=== PATIENT | male | born 1960 | race Caucasian/White ===

== ENCOUNTER 2017-05-09 07:55 | Observation (INO) | payer BC ==
--- NOTE | 2017-05-09 07:59 | PDOC ---
History of Present Illness - General Chief Complaint: Pain, Acute Stated Complaint: LLQ PAIN Time Seen by Provider: 05/09/17 07:59 - History of Present Illness Initial Comments: 05/09/17 08:09 56-year-old male with a history of chronic back pain, innumerable episodes of renal colic presents w left lower quadrant pain for 3 days. The patient reports that the pain is mostly in the left lower quadrant but radiates towards the suprapubic area. He reports that this pain feels somewhat like a kidney stone however typically has pain that begins in his flank which he did not have this time. Pain is associated with nausea and dry heaving but no vomiting. + chills as well, no fevers. He had a normal bowel movement this morning. He tried Percocet for pain 2 days ago with minimal relief. He also took a Flomax last night to assist with passing the stone but he has not passed any stones. He does report that at times the stones are not visible because they are too small. Denies urinary symptoms or hematuria. Denies headache, weakness, CP, SOB. Reports he has not been eating and drinking and feels dehydrated. Past History - Past Medical History Allergies/Adverse Reactions: Allergies Allergy/AdvReac Type Severity Reaction Status Date / Time moxifloxacin HCl Allergy Verified 05/09/17 07:56 [From Avelox] IVP DYE Allergy Uncoded 05/09/17 07:57 Home Medications: Ambulatory Orders Allopurinol 100 mg PO DAILY 05/09/17 Losartan Potassium 100 mg PO DAILY 05/09/17 Review of Systems - Review of Systems Comments:: 05/09/17 08:42 GENERAL/CONSTITUTIONAL: No fever No weakness +chills HEAD, EYES, EARS, NOSE AND THROAT: No change in vision. No ear pain or discharge. No sore throat. GASTROINTESTINAL: +nausea, +abd pain. No vomiting, diarrhea or constipation. GENITOURINARY: No dysuria, frequency, or change in urination. CARDIOVASCULAR: No chest pain or shortness of breath. RESPIRATORY: No cough, wheezing, or hemoptysis. MUSCULOSKELETAL: No joint or muscle swelling or pain. No neck or back pain. SKIN: No rash NEUROLOGIC: No headache, vertigo, loss of consciousness, or change in strength/ sensation. ENDOCRINE: No increased thirst. No abnormal weight change. HEMATOLOGIC/LYMPHATIC: No anemia, easy bleeding, or history of blood clots. ALLERGIC/IMMUNOLOGIC: No hives or skin allergy. *Physical Exam - Physical Exam Comments: 05/09/17 08:43 GENERAL: Awake, alert, and fully oriented, appears uncomfortable in stretcher HEAD: No signs of trauma EYES: PERRLA, EOMI, sclera anicteric, conjunctiva clear ENT: Auricles normal inspection, hearing grossly normal, nares patent, oropharynx clear without exudates. Moist mucosa NECK: Normal ROM, supple, no lymphadenopathy, JVD, or masses LUNGS: Breath sounds equal, clear to auscultation bilaterally. No wheezes, and no crackles HEART: tachy to 115 but regular, normal S1 and S2, no murmurs, rubs or gallops ABDOMEN: Soft, +LLQ ttp, normoactive bowel sounds. No guarding, no rebound. No masses. No CVAT EXTREMITIES: Normal range of motion, no edema. No clubbing or cyanosis. No cords, erythema, or tenderness NEUROLOGICAL: Normal speech, cranial nerves intact, negative pronator drift, 5/ 5 strength in all 4 extremities, normal sensation to light touch in all 4 extremities, normal cerebellar exam, normal gait, normal reflexes and tone SKIN: Warm, Dry, normal turgor, no rashes or lesions noted. ED Treatment Course - LABORATORY CBC & Chemistry Diagram: 05/09/17 08:10 05/09/17 08:10 Medical Decision Making - Medical Decision Making 05/09/17 08:44 56-year-old male with a history of back pain and renal colic presents with left lower quadrant pain. Vitals remarkable for tachycardia to 118, likely due to dehydration and poor by mouth intake. Exam with left lower quadrant tenderness to deep palpation. Differential includes but is not limited to renal colic versus acute diverticulitis. Will obtain imaging for evaluation, check a UA and labs. Will also give pain control and fluid resuscitation. 05/09/17 10:09 CT on my read with large stone. Pain is well controlled. Awaiting radiology read. 05/09/17 11:06 CT scan with 5 x 7 mm calculus in the distal upper ureter w mild-mod hydro. Pt required another dose of morphine for pain control. Discussed case with Dr. Reeves. Pt to be admitted for lithotripsy. Will also treat with 1G ceftriaxone given leukocytosis and also flomax. Hospitalist has been microblogged, awaiting call back for admission. 05/09/17 12:39 Case discussed in detail with admitting physician including history, physical exam and ancillary studies. Admitting physician has assumed care for the patient, will follow all pending diagnostics and will complete the evaluation and treatment. *DC/Admit/Observation/Transfer Diagnosis at time of Disposition: Renal colic on left side, LINO (acute kidney injury) - Discharge Dispostion Condition at time of disposition: Stable Admit: Yes - Referrals - Patient Instructions - Post Discharge Activity - Attestations Physician Attestion: 05/09/17 11:42 I, Dr. Kirk Lorenzo MD, attest that this document has been prepared under my direction and personally reviewed by me in its entirety. I further attest, that it accurately reflects all work, treatment, procedures and medical decision -making performed by me.
[2017-05-09] MEDS ORDERED: morphine CARPU-JECT 4 MG/1 ML DISP.SYRIN IVPUSH ONE ×2 (08:08→10:16)
[2017-05-09] MEDS ORDERED: SODIUM CHLORIDE 0.9% 500 ML INFUS.BAG IV ONE (08:08)
[2017-05-09 08:13] VITALS: BMI 37.5
[2017-05-09] MEDS ORDERED: morphine SULFATE 4 MG/ML VIAL ONE ×2 (08:14→16:55)
[2017-05-09 08:16] LABS: URINE APPEARANCE CLEAR; URINE BILIRUBIN NEGATIVE (NEGATIVE); URINE COLOR YELLOW; URINE GLUCOSE (UA) NEGATIVE (NEGATIVE); URINE KETONE 1+ (NEGATIVE)
[2017-05-09 08:17] LABS: PH,URINE 6.5 (4.5-8); URINE BLOOD 1+ (NEGATIVE); URINE LEUK ESTERASE NEGATIVE (NEGATIVE); URINE NITRITE NEGATIVE (NEGATIVE); URINE PROTEIN TRACE (NEGATIVE); URINE UROBILINOGEN 0.2 (0.2-1.0)
[2017-05-09 08:17] LABS: BASOPHIL 2.5 % (0-2.0); EOSINOPHIL 0.2 % (0-4.5); MCH 31.4 pg (25.7-33.7); MEAN CELL VOLUME 92.1 fl (80-96); MEAN PLT VOLUME 7.3 fl (7.5-11.1); NEUTROPHILS 78.6 % (42.8-82.8); PLATELET COUNT 421 K/MM3 (134-434); RDW 13.2 % (11.9-15.9); WHITE BLOOD COUNT 13.8 K/mm3 (4.0-10.8)
[2017-05-09] MEDS ORDERED: ONDANSETRON 4 MG/2 ML VIAL ONE (08:21)
[2017-05-09] MEDS ORDERED: ONDANSETRON 4 MG/2 ML VIAL IVPUSH ONE (08:24)
[2017-05-09 08:40] LABS: URINE WBC 0-2 (0-2)
[2017-05-09 08:41] LABS: URINE BACTERIA MODERATE /hpf (NEGATIVE)
[2017-05-09 08:41] LABS: ALBUMIN 3.9 g/dl (3.5-5.0); ALK PHOS 79 U/L (32-92); ANION GAP 10 (8-16); BILIRUBIN,TOTAL 1.1 mg/dl (0.2-1.0); CALCIUM 8.8 mg/dl (8.4-10.2); CO2 26 mmol/L (22-28); CREATININE 1.6 mg/dl (0.6-1.3); GLUCOSE,RANDOM 122 mg/dl (74-106); SGOT/AST 20 U/L (10-42); SGPT/ALT 18 U/L (10-40); TOT PROT 7.4 g/dl (6.4-8.3)
[2017-05-09] MEDS ORDERED: morphine CARPU-JECT 2 MG/1 ML DISP.SYRIN ONE (10:17)
[2017-05-09] MEDS ORDERED: CEFTRIAXONE 1 GM in DEXTROSE 5%-WATER - 50 ML IVPB ONE (11:02)
[2017-05-09] MEDS ORDERED: TAMSULOSIN HCL 0.4 MG CAP.ER.24H (FP) PO ONE (11:02)
[2017-05-09] MEDS ORDERED: cefTRIAXone SODIUM 1 GM VIAL ONE (11:11)
[2017-05-09] MEDS ORDERED: TAMSULOSIN HCL 0.4 MG CAP.ER.24H (FP) ONE (11:11)
[2017-05-09] MEDS ORDERED: SODIUM CHLORIDE 1,000 ML IV SCH ×2 (15:45→21:33)
[2017-05-09] MEDS: LOSARTAN POTASSIUM 50 MG TABLET (FP) PO SCH (16:13)
--- NOTE | 2017-05-09 17:49 | CON.GU ---
Consult Consult Specialty:: Referred by:: Medicine Reason for Consultation:: left ureteral calculus - History of Present Illness Chief Complaint: renal colic History of Present Illness: 56 year old male with history of recurrent nephrolithiasis who presents with two days of left sided flank and lower abdominal pain and nausea. No fevers. CT reveals a 7x5mm left UVJ stone with proximal hydronephrosis. - History Source History Provided By: Patient Limitations to Obtaining History: No Limitations - Past Medical History Renal/: Yes: Renal Calculi - Alcohol/Substance Use Hx Alcohol Use: No - Smoking History Smoking history: Never smoked Have you smoked in the past 12 months: No Home Medications - Allergies Allergies/Adverse Reactions: Allergies Allergy/AdvReac Type Severity Reaction Status Date / Time moxifloxacin HCl Allergy Verified 05/09/17 07:56 [From Avelox] IVP DYE Allergy Uncoded 05/09/17 07:57 - Home Medications Home Medications: Ambulatory Orders Allopurinol 100 mg PO DAILY 05/09/17 Losartan Potassium 100 mg PO DAILY 05/09/17 Review of Systems - Review of Systems Constitutional: denies: Fever Gastrointestinal: reports: Nausea Genitourinary: reports: Flank Pain, Frequency. denies: Burning, Hematuria, Incontinence, Testicular Pain Physical Exam- Vital Signs: Vital Signs Temperature 97.8 F 05/09/17 15:38 Pulse Rate 124 H 05/09/17 15:38 Respiratory Rate 18 05/09/17 15:38 Blood Pressure 139/89 05/09/17 15:38 O2 Sat by Pulse Oximetry (%) 95 05/09/17 15:04 Constitutional: Yes: Well Nourished, No Distress, Calm Respiratory: Yes: WNL, Regular Gastrointestinal: Yes: Soft, Abdomen, Obese Renal/: No: Bladder Distention, CVA Tenderness - Left, CVA Tenderness - Right , [place] Present Labs: CBC, BMP 05/09/17 08:10 05/09/17 08:10 Imaging - Results Cat Scan: Report Reviewed, Image Reviewed Problem List - Problems (1) Calculus of left ureter Assessment/Plan: stone at UVJ. no signs of infection or sepsis. medical expulsive therapy overnight. Discussed option ureteroscopic laser litho, but the patient does not want invasive managment if possible and would prefer ESWL Code(s): N20.1 - CALCULUS OF URETER (2) Hydronephrosis Code(s): N13.30 - UNSPECIFIED HYDRONEPHROSIS
--- NOTE | 2017-05-09 21:25 | HP ---
Admitting History and Physical - Primary Care Physician PCP: oTr Patel - Admission Chief Complaint: left lower quadrant pain History of Present Illness: This is a 56 year old male with hx of HTN and renal calculi. He presented to the ED today with worsening left sided groin pain. Pain started on Monday and he assumed it would pass as he had similar events in the past however the pain moved from his groin to his supra pubic region and back again to groin radiating down his pelvis. He did feel nauseated and has not had an appetite. Currently, his pain is stable and nausea is eating a small meal. Denies chest pain, fever, chills, change in bowel or urinary habits, sob, activity level. 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 [employer] History of Recent Travel: No Home Medications - Allergies Allergies/Adverse Reactions: Allergies Allergy/AdvReac Type Severity Reaction Status Date / Time moxifloxacin HCl Allergy Verified 05/09/17 07:56 [From Avelox] IVP DYE Allergy Uncoded 05/09/17 07:57 - Home Medications Home Medications: Ambulatory Orders Allopurinol 100 mg PO DAILY 05/09/17 Losartan Potassium 100 mg PO DAILY 05/09/17 Review of Systems - Review of Systems Constitutional: reports: Loss of Appetite Eyes: reports: No Symptoms HENT: reports: No Symptoms Neck: reports: No Symptoms Cardiovascular: reports: No Symptoms Respiratory: reports: No Symptoms Gastrointestinal: reports: No Symptoms Genitourinary: reports: Other (left groin pain) Musculoskeletal: reports: No Symptoms Integumentary: reports: No Symptoms Neurological: reports: No Symptoms Endocrine: reports: No Symptoms Hematology/Lymphatic: reports: No Symptoms Psychiatric: reports: No Symptoms Physical Examination Vital Signs: Vital Signs Temperature 97.8 F 05/09/17 15:38 Pulse Rate 124 H 05/09/17 15:38 Respiratory Rate 18 05/09/17 20:49 Blood Pressure 139/89 05/09/17 15:38 O2 Sat by Pulse Oximetry (%) 95 05/09/17 15:04 Constitutional: Yes: No Distress Eyes: Yes: Conjunctiva Clear HENT: Yes: Atraumatic Neck: Yes: Supple Cardiovascular: Yes: Regular Rate and Rhythm, S1, S2 Respiratory: Yes: Regular, CTA Bilaterally Gastrointestinal: Yes: Normal Bowel Sounds, Other (LLQ tenderness referring down pelvic region) ...Rectal Exam: Yes: WNL Renal/: Yes: Other (mild supra pubic tenderness refers to L groin) Extremities: Yes: WNL Edema: No Integumentary: Yes: WNL Neurological: Yes: Alert, Oriented, Cran Nerves II-XII Intact ...Motor Strength: WNL Psychiatric: Yes: Alert, Oriented Labs: CBC, BMP 05/09/17 08:10 05/09/17 08:10 Imaging - Results Chest X-ray: Report Reviewed, Image Reviewed (bibasilar atelectatic changes) Cat Scan: Report Reviewed (7x5mm left renal calculi w hydro) Problem List - Problems (1) LINO (acute kidney injury) Code(s): N17.9 - ACUTE KIDNEY FAILURE, UNSPECIFIED (2) Calculus of left ureter Code(s): N20.1 - CALCULUS OF URETER (3) Hydronephrosis Code(s): N13.30 - UNSPECIFIED HYDRONEPHROSIS (4) Renal colic on left side Code(s): N23 - UNSPECIFIED RENAL COLIC Assessment/Plan Assessment: 56 year old male with HTN admitted with worsening left renal colic pain Plan 1. L sided renal calucli with hydro - Start IVF @1000cc/hr - Monitor pain improvement - x1 dose ceftriaxone, UA negative for UTI - Flomax daily - Possible lithotripsy in AM at [facility] if symptoms do not improve - NPO after midnight - D/w urology 2. HTN - Losartan 100mg daily 3. LINO - Likely post obstructive - Will monitor - Fluids as above 4. Leukocytosis - Likely reactive, no fevers, chills - Trend 5. DVT - SCDS, hold systemic AC for possible OR in AM Visit type - Emergency Visit Emergency Visit: Yes ED Registration Date: 05/09/17 Care time: The patient presented to the Emergency Department on the above date and was hospitalized for further evaluation of their emergent condition. - New Patient This patient is new to me today: Yes Date on this admission: 05/09/17 - Critical Care Critical Care patient: No
[2017-05-10] MEDS: morphine SULFATE 4 MG/ML VIAL IVPB PRN ×2 (01:40→07:31)
[2017-05-10 08:17] LABS: MCH 30.7 pg (25.7-33.7); MCHC 33.2 g/dl (32.0-35.9); MEAN CELL VOLUME 92.6 fl (80-96); MEAN PLT VOLUME 7.5 fl (7.5-11.1); PLATELET COUNT 367 K/MM3 (134-434); RDW 13.3 % (11.9-15.9); WHITE BLOOD COUNT 11.6 K/mm3 (4.0-10.8)
--- NOTE | 2017-05-10 08:20 | PN ---
Physical Exam: SUBJECTIVE: Patient seen and examined OBJECTIVE: Vital Signs Period Temp Pulse Resp BP Sys/Valle Pulse Ox Last 24 Hr 97.8 F-98.7 F 95-124 16-20 92-159/53-97 94-97 GENERAL: The patient is awake, alert, and fully oriented, in no acute distress. HEAD: Normal with no signs of trauma. EYES: PERRL, extraocular movements intact, sclera anicteric, conjunctiva clear. No ptosis. ENT: Ears normal, nares patent, oropharynx clear without exudates, moist mucous membranes. NECK: Trachea midline, full range of motion, supple. LUNGS: Breath sounds equal, clear to auscultation bilaterally, no wheezes, no crackles, no accessory muscle use. HEART: Regular rate and rhythm, S1, S2 without murmur, rub or gallop. ABDOMEN: Soft, nontender, nondistended, normoactive bowel sounds, no guarding, no rebound, no hepatosplenomegaly, no masses. EXTREMITIES: 2+ pulses, warm, well-perfused, no edema. NEUROLOGICAL: Cranial nerves II through XII grossly intact. Normal speech, gait not observed. PSYCH: Normal mood, normal affect. SKIN: Warm, dry, normal turgor, no rashes or lesions noted Laboratory Results - last 24 hr 05/09/17 05/09/17 05/09/17 08:08 08:10 08:10 WBC 13.8 H RBC 4.95 Hgb 15.5 Hct 45.6 MCV 92.1 MCH 31.4 MCHC 34.0 RDW 13.2 Plt Count 421 MPV 7.3 L Neutrophils % 78.6 Lymphocytes % 9.5 Monocytes % 9.2 Eosinophils % 0.2 Basophils % 2.5 H Sodium 134 L Potassium 3.7 Chloride 98 Carbon Dioxide 26 Anion Gap 10 BUN 16 Creatinine 1.6 H Creat Clearance w eGFR 44.78 Random Glucose 122 H Calcium 8.8 Total Bilirubin 1.1 H AST 20 ALT 18 Alkaline Phosphatase 79 Total Protein 7.4 Albumin 3.9 Urine Color Yellow Urine Appearance Clear Urine pH 6.5 Ur Specific [place] 1.020 Urine Protein Trace H Urine Glucose (UA) Negative Urine Ketones 1+ H Urine Blood 1+ H Urine Nitrite Negative Urine Bilirubin Negative Urine Urobilinogen 0.2 Ur Leukocyte Esterase Negative Urine RBC 3-5 Urine WBC 0-2 Ur Epithelial Cells Few Urine Bacteria Moderate 05/10/17 07:30 WBC 11.6 H RBC 4.49 Hgb 13.8 D Hct 41.5 MCV 92.6 MCH 30.7 MCHC 33.2 RDW 13.3 Plt Count 367 MPV 7.5 Neutrophils % Lymphocytes % Monocytes % Eosinophils % Basophils % Sodium Potassium Chloride Carbon Dioxide Anion Gap BUN Creatinine Creat Clearance w eGFR Random Glucose Calcium Total Bilirubin AST ALT Alkaline Phosphatase Total Protein Albumin Urine Color Urine Appearance Urine pH Ur Specific [place] Urine Protein Urine Glucose (UA) Urine Ketones Urine Blood Urine Nitrite Urine Bilirubin Urine Urobilinogen Ur Leukocyte Esterase Urine RBC Urine WBC Ur Epithelial Cells Urine Bacteria Active Medications Generic Name Dose Route Start Last Admin Trade Name Freq PRN Reason Stop Dose Admin Sodium Chloride 1,000 mls @ 83 mls/hr 05/09/17 21:33 05/10/17 01:41 Normal Saline - IV 83 mls/hr ASDIR UMER Administration Losartan Potassium 100 mg 05/09/17 16:00 05/09/17 16:13 Cozaar - PO 100 mg DAILY UMER Administration Morphine Sulfate 4 mg 05/09/17 16:55 05/10/17 07:31 Morphine Sulfate IVPB 4 mg Q6H PRN Administration PAIN Tamsulosin HCl 0.4 mg 05/10/17 08:30 Flomax - PO DAILY@0830 [facility] ASSESSMENT/PLAN:
[2017-05-10] MEDS ORDERED: TAMSULOSIN HCL 0.4 MG CAP.ER.24H (FP) PO SCH (08:30)
[2017-05-10 08:32] LABS: ANION GAP 7 (8-16); CALCIUM 8.2 mg/dl (8.4-10.2); CO2 25 mmol/L (22-28); CREATININE 1.5 mg/dl (0.6-1.3); GLUCOSE,RANDOM 116 mg/dl (74-106); MAGNESIUM 1.7 mg/dL (1.8-2.4)
[2017-05-10] MEDS ORDERED: MAGNESIUM SULFATE 2 GM in SODIUM CHLORIDE 100 ML IVPB ONE (09:08)
--- NOTE | 2017-05-10 09:32 | EKG ---
Test Reason : Blood Pressure : / mmHG Vent. Rate : 093 BPM Atrial Rate : 093 BPM P-R Int : 136 ms QRS Dur : 086 ms QT Int : 354 ms P-R-T Axes : 062 047 032 degrees QTc Int : 440 ms NORMAL SINUS RHYTHM NORMAL ECG NO PREVIOUS ECGS AVAILABLE Confirmed by NICCI PEDRO MD ([id number] on 05/10/2017 9:32:20 AM Referred By: MAXIMINO SANTANA Confirmed By:NICCI PEDRO MD
[2017-05-10] MEDS ORDERED: ALLOPURINOL 100 MG TABLET (FP) PO SCH (10:00)
[2017-05-10] MEDS ORDERED: CEFTRIAXONE 1 GM/50 ML PREMIX IVPB SCH (10:00)
[2017-05-10] MEDS ORDERED: ALLOPURINOL 100 MG PO SCH (10:00)
[2017-05-10] MEDS ORDERED: cefTRIAXone 1 GM/50 ML BAG (PRE-DOCKED) IVPB SCH (10:00)
[2017-05-10] MEDS ORDERED: MAGNESIUM SULF 50% (8.12 MEQ/2 ML-1 GM VIAL) IVPB ONE (10:00)
[2017-05-10] MEDS: LOSARTAN POTASSIUM 50 MG TABLET (FP) PO SCH (10:30)
--- NOTE | 2017-05-10 14:04 | DS ---
Physical Exam: SUBJECTIVE: Patient seen and examined OBJECTIVE: Vital Signs Period Temp Pulse Resp BP Sys/Valle Pulse Ox Last 24 Hr 97.8 F-98.7 F 95-124 17-20 92-153/53-89 94-97 PHYSICAL EXAM GENERAL: The patient is awake, alert, and fully oriented, in no acute distress. HEAD: Normal with no signs of trauma. EYES: PERRL, extraocular movements intact, sclera anicteric, conjunctiva clear. ENT: Ears normal, nares patent, oropharynx clear without exudates, moist mucous membranes. NECK: Trachea midline, full range of motion, supple. LUNGS: Breath sounds equal, clear to auscultation bilaterally, no wheezes, no crackles, no accessory muscle use. HEART: Regular rate and rhythm, S1, S2 without murmur, rub or gallop. ABDOMEN: Soft, nontender, nondistended, normoactive bowel sounds, no guarding, no rebound, no hepatosplenomegaly, no masses. EXTREMITIES: 2+ pulses, warm, well-perfused, no edema. NEUROLOGICAL: Cranial nerves II through XII grossly intact. Normal speech, gait not observed. PSYCH: Normal mood, normal affect. SKIN: Warm, dry, normal turgor, no rashes or lesions noted. LABS Laboratory Results - last 24 hr 05/10/17 05/10/17 07:30 07:30 WBC 11.6 H RBC 4.49 Hgb 13.8 D Hct 41.5 MCV 92.6 MCH 30.7 MCHC 33.2 RDW 13.3 Plt Count 367 MPV 7.5 Sodium 132 L Potassium 4.1 Chloride 100 Carbon Dioxide 25 Anion Gap 7 L BUN 14 Creatinine 1.5 H Random Glucose 116 H Calcium 8.2 L Magnesium 1.7 L HOSPITAL COURSE: Date of Admission:05/09/17 Date of Discharge: 05/10/17 Minutes to complete discharge: 45 Discharge Summary Reason For Visit: RENAL COLIC ON LEFT SIDE ACUTE KIDNEY INJURY Current Active Problems LINO (acute kidney injury) (Acute) Calculus of left ureter (Acute) Hydronephrosis (Acute) Renal colic on left side (Acute) Condition: Stable - Instructions - Home Medications Comprehensive Discharge Medication List: Ambulatory Orders Ca Cmb No.1/Vit D3/B-6/FA/B12 [Vitamin D3 1,000 Unit Tablet] 1 each PO DAILY tablet 06/05/12 Oxycodone HCl/Acetaminophen [Percocet 5/325 -] 1 tab PO Q4H PRN #15 tablet 07/17 Simvastatin mg PO HS 07/17/15 Carisoprodol 350 mg PO DAILY PRN tablet 06/07/16 Allopurinol 100 mg PO DAILY 05/09/17 Losartan Potassium 100 mg PO DAILY 05/09/17
[2017-05-10 14:25] VITALS: BP 113/59; PULSE 100; TEMP 98
== END 2017-05-10 15:08 | disposition home or self-care (01) ==
LOC: FER 07:55 → MERGE 13:50 → FM/S 13:50
PROVIDERS: ADMIT Internal Medicine; ATTEND Nurse Practitioner Family
PROC: 3E03329 Introduction of Other Anti-infective into Peripheral Vein, Percutaneous Approach (ICD-10-PCS; principal; 2017-05-09)
PROC: 3E033NZ Introduction of Analgesics, Hypnotics, Sedatives into Peripheral Vein, Percutaneous Approach (ICD-10-PCS; 2017-05-09)
PROC: 3E033GC Introduction of Other Therapeutic Substance into Peripheral Vein, Percutaneous Approach (ICD-10-PCS; 2017-05-09)
DX: N13.2 Hydronephrosis with renal and ureteral calculous obstruction (principal); Z87.442 Personal history of urinary calculi; N17.9 Acute kidney failure, unspecified; I10 Essential (primary) hypertension; Z86.718 Personal history of other venous thrombosis and embolism
CPT/HCPCS: 36415; 71010-TC; 74176-TC; 76775-TC; 76856-TC; 80048; 80053; 81003; 81015; 83735; 85025; 85027; 87086; 93005; 99284-25; G0378

== ENCOUNTER 2017-05-16 06:41 | Day surgery (SDC) | payer BC ==
[2017-05-16] MEDS ORDERED: oxyCODONE HCL 5 MG TABLET PO PRN (08:17)
[2017-05-16] MEDS ORDERED: ONDANSETRON 4 MG/2 ML VIAL IVPUSH PRN (08:17)
[2017-05-16] MEDS ORDERED: PROPOFOL 20 ML ONE (08:26)
[2017-05-16] MEDS ORDERED: MIDAZOLAM HCL 2 MG/2 ML SINGLE DOSE VIAL ONE ×2 (08:26)
[2017-05-16] MEDS ORDERED: LIDOCAINE HCL/PF 2% SDV 5ML VIAL ONE (08:26)
[2017-05-16] MEDS ORDERED: LACTATED RINGERS SOLUTION 1,000 ML IV SCH (08:30)
--- NOTE | 2017-05-16 08:31 | HP ---
History & Physical Update - History History: No Change - Physical Physical: No Change - Assessment Assessment: No Change - Plan Plan: No Change
[2017-05-16] MEDS ORDERED: GENTAMICIN SO4 80 MG/2 ML VIAL ONE (08:32)
[2017-05-16] MEDS ORDERED: GENTAMICIN SO4 80 MG/2 ML VIAL IVPB ONE (08:35)
[2017-05-16] MEDS ORDERED: ACETAMINOPHEN 1000 MG/100 ML VIAL (NON FORMULARY) IVPB ONE (08:59)
[2017-05-16] MEDS ORDERED: IBUPROFEN 800 MG/8 ML IJ IVPB PRN (08:59)
[2017-05-16] MEDS ORDERED: DEXTROSE 5%-0.45% SALINE 1,000 ML IV SCH (09:00)
[2017-05-16] MEDS ORDERED: KETOROLAC TROMETHAMINE 30 MG/1 ML VIAL ONE (09:12)
[2017-05-16] MEDS ORDERED: ACETAMINOPHEN INJECTION 100 ML IVPB ONE (09:44)
[2017-05-16 16:16] VITALS: BP 106/70; PULSE 68; TEMP 98
--- NOTE | 2017-05-17 09:32 | OP ---
DATE OF OPERATION: 05/16/2017 PREOPERATIVE DIAGNOSIS: Left ureteral calculus. POSTOPERATIVE DIAGNOSIS: Left ureteral calculus. PROCEDURE: Left extracorporeal shock wave lithotripsy. ANESTHESIA: General, Citlali Trujillo MD. FINDINGS: Stone in the junction of the upper and mid-ureter on the left side. ESTIMATED BLOOD LOSS: None. PREOPERATIVE INDICATIONS: The patient is a 56-year-old male with recurrent kidney stone disease. He has a 7 x 5 mm stone lodged in the ureter at the junction of the upper and mid-ureter. He comes to the OR for ESWL. DESCRIPTION OF OPERATION: The patient was brought to the OR, placed on the table in the supine position. Stone was located on fluoroscopy and correlated with the CAT scan report a few days earlier. Next, 2500 shocks were applied to the area of the stone. Patient was given IV antibiotic as well. He tolerated the procedure well, was woken up. Anna [id number]
== END 2017-05-16 12:00 | disposition home or self-care (01) ==
LOC: JASU-SURG 06:41
PROVIDERS: ATTEND Urology
PROC: 0TF7XZZ Fragmentation in Left Ureter, External Approach (ICD-10-PCS; principal; 2017-05-16 08:15)
DX: N20.1 Calculus of ureter (principal); I10 Essential (primary) hypertension; E78.5 Hyperlipidemia, unspecified; E66.9 Obesity, unspecified; Z68.37 Body mass index [BMI] 37.0-37.9, adult
CPT/HCPCS: 94760

== ENCOUNTER 2017-06-23 10:27 | Emergency (ER) | payer BC ==
[2017-06-23] MEDS ORDERED: HYDROmorphone HCL CARPU-JECT 1 MG/1 ML DISP.SYRIN IVPUSH ONE ×2 (10:40→11:45)
[2017-06-23] MEDS ORDERED: ONDANSETRON 4 MG/2 ML VIAL IVPUSH ONE (10:40)
[2017-06-23] MEDS ORDERED: SODIUM CHLORIDE 1,000 ML IV STA (10:40)
[2017-06-23] MEDS ORDERED: ONDANSETRON 4 MG/2 ML VIAL ONE (10:45)
[2017-06-23] MEDS ORDERED: HYDROmorphone HCL CARPU-JECT 1 MG/1 ML DISP.SYRIN ONE ×2 (10:45→11:42)
[2017-06-23 11:16] LABS: BASO % 0.9 % (0-2.0); EOS % 1.3 % (0-4.5); HEMATOCRIT 45.9 % (35.4-49); HEMOGLOBIN 15.3 GM/dl (11.7-16.9); LYMPH % 20.9 % (8-40); MCH 31.6 pg (25.7-33.7); MCHC 33.3 g/dl (32.0-35.9); MEAN CELL VOLUME 94.9 fl (80-96); MEAN PLT VOLUME 7.5 fl (7.5-11.1); MONO % 7.7 % (3.8-10.2); NEUT % 69.2 % (42.8-82.8); PLATELET COUNT 433 K/MM3 (134-434); RBC 4.83 M/mm3 (4.00-5.60); RDW 12.9 % (11.9-15.9); WHITE BLOOD COUNT 8.8 K/mm3 (4.0-10.8)
[2017-06-23 11:22] LABS: ANION GAP 6 (8-16); BLOOD UREA NITROGEN 17 mg/dl (7-18); CALCIUM 9.4 mg/dl (8.4-10.2); CHLORIDE 101 mmol/L (98-107); CO2 28 mmol/L (22-28); CREATININE 1.1 mg/dl (0.6-1.3); GLUCOSE,RANDOM 102 mg/dl (74-106); POTASSIUM 4.2 mmol/L (3.5-5.1); SODIUM 135 mmol/L (136-145)
--- NOTE | 2017-06-23 11:51 | PDOC ---
History of Present Illness - General Chief Complaint: Pain Stated Complaint: LEFT LOWER ABD PAIN Time Seen by Provider: 06/23/17 10:35 - History of Present Illness Initial Comments: 06/23/17 11:49 Chief complaint left lower quadrant pain History of present illness: 56 years old past medical history significant for hypertension, renal insufficiency, renal calculi presents to the ED with sudden onset left flank pain radiating to his left lower quadrant. Pain is moderate to severe 10 out of 10 persistent constant associated with nausea no alleviating factors. Pain feels exactly like his previous kidney stones No fever no chills no chest pain shortness of breath vomiting or diarrhea Past History - Past Medical History Allergies/Adverse Reactions: Allergies Allergy/AdvReac Type Severity Reaction Status Date / Time Iodinated Contrast- Oral and Allergy Intermediate Hives Verified 06/23/17 12:42 IV Dye [Iodinated Contrast Media - IV Dye] moxifloxacin HCl Allergy Intermediate redness Verified 06/23/17 12:42 [From Avelox] amoxicillin Allergy Itchy Verified 06/23/17 12:42 palms and neck IVP dye Allergy Severe Uncoded 06/23/17 12:42 IVP DYE Allergy Uncoded 06/23/17 12:42 Home Medications: Ambulatory Orders Allopurinol [Zyloprim -] 100 mg PO DAILY 06/23/17 Cyclobenzaprine HCl [Flexeril -] 10 mg PO HS 06/23/17 Losartan Potassium 100 mg PO DAILY 06/23/17 Methocarbamol 500 mg PO HS 06/23/17 Ondansetron [Zofran Odt -] 4 mg SL TID #21 od.tablet 06/23/17 Oxycodone HCl/Acetaminophen [Percocet 5-325 mg Tablet] 1 tab PO Q6H PRN #16 tablet MDD 3 grams tylenol 06/23/17 Tamsulosin HCl [Flomax] 0.4 mg PO DAILY 06/23/17 Anemia: No Asthma: No Cancer: No Cardiac Disorders: No CVA: No COPD: No CHF: No Dementia: No Diabetes: No GI Disorders: No Disorders: No HTN: Yes Hypercholesterolemia: No Kidney Stones: Yes Liver Disease: No Seizures: No Thyroid Disease: No - Surgical History Abdominal Surgery: No Appendectomy: No Cardiac Surgery: No Cholecystectomy: No Lung Surgery: No Neurologic Surgery: No Orthopedic Surgery: No - Suicide/Smoking/Psychosocial Hx Smoking History: Never smoked Have you smoked in the past 12 months: No Number of Cigarettes Smoked Daily: 0 Hx Alcohol Use: No Drug/Substance Use Hx: No Substance Use Type: None Hx Substance Use Treatment: No Review of Systems - Review of Systems Comments:: 06/23/17 11:49 ROS: A complete review of 10 out of 10 review of systems is taken and is negative apart from what is previously mentioned below and in the HPI. *Physical Exam - Physical Exam Comments: 06/23/17 11:49 Vitals: Triage Vital signs reviewed General Appearance: Moderate acute distress, well nourished well developed, Head: Atraumatic, Neck: Supple;No Nucal rigidity Chest Wall: Nontender Cardiac: Regular rate and rhythym, no murmurs, no rubs, no gallops, Lungs: Clear to auscultation bilateral, good air movement bilaterally, Abdomen: Soft, non distended, normal bowel sounds, mild left lower quadrant tenderness palpation, mild CVA tenderness palpation Extremities: no cyanosis, clubbing, or edema Skin: Warm and dry, no rashes or lesions, no rash, no petechiae Psych: normal mood, normal affect ED Treatment Course - LABORATORY CBC & Chemistry Diagram: 06/23/17 10:57 06/23/17 10:57 - ADDITIONAL ORDERS Additional order review: Laboratory Results 06/23/17 10:57 Sodium 135 L Potassium 4.2 Chloride 101 Carbon Dioxide 28 Anion Gap 6 L BUN 17 D Creatinine 1.1 D Random Glucose 102 Calcium 9.4 06/23/17 10:57 RBC 4.83 MCV 94.9 MCHC 33.3 RDW 12.9 MPV 7.5 Neutrophils % 69.2 Lymphocytes % 20.9 D Monocytes % 7.7 Eosinophils % 1.3 D Basophils % 0.9 - RADIOLOGY Radiology Studies Ordered: Category Date Time Status KUB (KID UR & BLAD) [RAD] Stat Radiology 06/23/17 10:42 Taken KIDNEY / RENAL US [US] Stat Ultrasound 06/23/17 10:41 Ordered PELVIC / BLADDER US [US] Routine Ultrasound 06/23/17 Ordered - Medications Given in the ED: ED Medications Discontinued Medications Generic Name Dose Route Start Last Admin Trade Name Freq PRN Reason Stop Dose Admin Hydromorphone HCl 1 mg 06/23/17 10:40 06/23/17 10:46 Dilaudid Injection - IVPUSH 06/23/17 10:41 1 mg ONCE ONE Administration Hydromorphone HCl 1 mg 06/23/17 11:45 06/23/17 11:46 Dilaudid Injection - IVPUSH 06/23/17 11:46 1 mg ONCE ONE Administration Sodium Chloride 1,000 mls @ 1,000 mls/hr 06/23/17 10:40 06/23/17 10:46 Normal Saline - IV 06/23/17 11:39 1,000 mls/hr ASDIR STA Administration Ondansetron HCl 4 mg 06/23/17 10:40 06/23/17 10:46 Zofran Injection IVPUSH 06/23/17 10:41 4 mg ONCE ONE Administration Medical Decision Making - Medical Decision Making 06/23/17 11:50 History and examination most consistent with renal colic. Pain has now localized to the left lower quadrant. Patient has had approximately 10 CAT scans of the course of his lifetime. We discussed the risks and benefits of performing a CAT scan at this time. Given that the pain is left-sided patient's age symptomatology being consistent with renal colic we will try to avoid an additional CAT scan at this time. We'll treat with pain medications avoid NSAIDs given patient's ALLERGIES, IV fluids renal bladder ultrasound KUB and reevaluation. 06/23/17 13:45 [place]-nephrosis and hydroureter noted on ultrasound on the left consistent with patient's symptomatology. Urinalysis with 2+ blood. Patient's pain markedly improved after pain medication and IV fluids. History and examination consistent with left ureteral calculus. At this time both myself and patient are in agreement to try to avoid a CAT scan given patient's multiple CAT scans in the past. He'll follow-up with his urologist next week we will discharge home on Percocet. Patient has Flomax at home he cannot take NSAIDs He will return to the emergency department immediately for any uncontrollable pain any fever vomiting or if he begins to feel L. Otherwise he'll follow-up with his urologist next week Findings, the need for follow-up, strict return instructions discussed with patient. *DC/Admit/Observation/Transfer Diagnosis at time of Disposition: Kidney stone - Discharge Dispostion Admit: No - Referrals - Patient Instructions Printed Discharge Instructions: Kidney Stones -- Adult Additional Instructions: Drink plenty of fluids. Percocet as prescribed as needed for kidney stone pain. Purchase an [id number] stool softener such as Colace. Take as directed on package well taking Percocet to prevent constipation. Take Flomax 1 tab at night for the next 5 nights. Zofran as prescribed for nausea. Follow-up with urologist next week. Return to the emergency department immediately for fever vomiting uncontrollable pain or for any concerns. - Post Discharge Activity
[2017-06-23 12:40] VITALS: BP 158/90; PULSE 117; TEMP 98; BMI 37.5
[2017-06-23] MEDS ORDERED: ACETAMINOPHEN INJECTION 100 ML IVPB ONE (12:51)
[2017-06-23 13:04] LABS: URINE APPEARANCE Clear; URINE BILIRUBIN Negative (NEGATIVE); URINE GLUCOSE (UA) Negative (NEGATIVE); URINE KETONE Negative (NEGATIVE); URINE NITRITE Negative (NEGATIVE); URINE UROBILINOGEN 0.2 (0.2-1.0)
[2017-06-23 13:09] LABS: URINE BLOOD 2+ (NEGATIVE); URINE COLOR YELLOW; URINE PROTEIN 1+ (NEGATIVE)
[2017-06-23] MEDS ORDERED: ACETAMINOPHEN 1000 MG/100 ML VIAL (NON FORMULARY) IVPB ONE (13:34)
[2017-06-23] MEDS ORDERED: SODIUM CHLORIDE 1,000 ML IV ONE (14:09)
[2017-06-23 14:16] LABS: CALCIUM OXALATE CRYSTALS FEW /hpf (NONE SEEN); EPI CELLS NONE SEEN /HPF; URINE BACTERIA NONE SEEN /hpf (NEGATIVE); URINE WBC 0-2 (0-2)
== END 2017-06-23 15:10 | disposition home or self-care (01) ==
LOC: FER 10:27
PROC: 3E033NZ Introduction of Analgesics, Hypnotics, Sedatives into Peripheral Vein, Percutaneous Approach (ICD-10-PCS; principal; 2017-06-23)
PROC: 3E033GC Introduction of Other Therapeutic Substance into Peripheral Vein, Percutaneous Approach (ICD-10-PCS; 2017-06-23)
PROC: 3E0337Z Introduction of Electrolytic and Water Balance Substance into Peripheral Vein, Percutaneous Approach (ICD-10-PCS; 2017-06-23)
DX: N23 Unspecified renal colic (principal); I10 Essential (primary) hypertension; N28.9 Disorder of kidney and ureter, unspecified
CPT/HCPCS: 36415; 74018-TC; 76775-TC; 76856-TC; 80048; 81003; 81015; 85025; 99283-25

== ENCOUNTER 2024-04-04 04:55 | Day surgery (SDC) | payer BC ==
[2024-04-01 14:46] VITALS: BMI 41.4
[2024-04-04] MEDS ORDERED: BUPIVACAINE HCL/PF 0.25% (2.5MG/ML) 10 ML VIAL ONE (07:18)
[2024-04-04] MEDS ORDERED: LIDOCAINE HCL/PF 2% SDV 5ML VIAL ONE (07:18)
[2024-04-04] MEDS ORDERED: TRIAMCINOLONE ACET 40MG/1ML VIAL ONE (07:19)
[2024-04-04] MEDS ORDERED: BUPIVACAINE HCL/PF 0.75% 10 ML VIAL ONE (07:19)
[2024-04-04] MEDS ORDERED: BUPIVACAINE HCL/PF 0.5% (5MG/ML) 10 ML VIAL ONE (07:19)
[2024-04-04] MEDS ORDERED: LIDOCAINE HCL/PF 1% SDV 5ML VIAL ONE (07:20)
[2024-04-04] MEDS ORDERED: DEXAMETHASONE SOD PHOSPHATE 10 MG/1 ML VIAL ONE (07:20)
[2024-04-04] MEDS ORDERED: MIDAZOLAM HCL 2 MG/2 ML SINGLE DOSE VIAL ONE ×4 (07:46→09:11)
[2024-04-04] MEDS ORDERED: ceFAZolin SODIUM 1 GM VIAL ONE (08:30)
[2024-04-04] MEDS ORDERED: ONDANSETRON 4 MG/2 ML VIAL ONE (08:41)
[2024-04-04] MEDS ORDERED: METOPROLOL TARTRATE 5 MG/5 ML VIAL ONE (08:49)
[2024-04-04 10:31] VITALS: TEMP 98.4
[2024-04-04 10:42] VITALS: BP 144/84; PULSE 92; RESP 14
== END 2024-04-04 11:42 | disposition home or self-care (01) ==
LOC: JASU-SURG 04:55
PROVIDERS: ATTEND Pain Medicine Pain Medicine
PROC: 015B3ZZ Destruction of Lumbar Nerve, Percutaneous Approach (ICD-10-PCS; principal; 2024-04-04 08:00)
DX: M54.51 Vertebrogenic low back pain (principal)
CPT/HCPCS: 64628; C1713; 76000-TC-FY; 94760; J1100

== ENCOUNTER 2024-05-02 04:03 | Day surgery (SDC) | payer BC ==
[2024-05-01 09:11] VITALS: BMI 41.4
[2024-05-02 06:38] VITALS: RESP 20
[2024-05-02] MEDS ORDERED: LIDOCAINE HCL/PF 2% SDV 5ML VIAL ONE (07:13)
[2024-05-02] MEDS ORDERED: LIDOCAINE HCL/PF 1% SDV 5ML VIAL ONE (07:14)
[2024-05-02] MEDS ORDERED: ACETAMINOPHEN 500 MG TABLET (FP) PO PRN (09:29)
[2024-05-02] MEDS: LIDOCAINE HCL 1% PRESERVATIVE FREE - 30ML VIAL IJ ONE ×2 (09:45)
[2024-05-02] MEDS: LACTATED RINGERS SOLUTION 1,000 ML IV SCH (10:35)
[2024-05-02 11:42] VITALS: BP 114/62; PULSE 72; TEMP 97.1
== END 2024-05-02 12:30 | disposition home or self-care (01) ==
LOC: JASU-SURG 04:03
PROVIDERS: ATTEND Pain Medicine Pain Medicine
PROC: 015B3ZZ Destruction of Lumbar Nerve, Percutaneous Approach (ICD-10-PCS; principal; 2024-05-02 08:54)
DX: M54.51 Vertebrogenic low back pain (principal)
CPT/HCPCS: 64628; C1889; 76000-TC-FY; 93005; 93010; 94760